=== PATIENT | female | born 1940 | race Caucasian/White ===

== ENCOUNTER 2017-05-24 07:17 | Day surgery (SDC) | payer MEDICARE, BC ==
[2017-05-24] MEDS ORDERED: Lactated Ringers 1,000 ML IV SCH (08:00)
[2017-05-24] MEDS ORDERED: Lidocaine 2% 100 MG/5 ML Syringe IVPUSH ONE (08:30)
[2017-05-24] MEDS ORDERED: Midazolam 1 MG/ML 2 ML SDV IV ONE (08:30)
[2017-05-24] MEDS ORDERED: Propofol 200 MG/20 ML SDV IV ONE (08:30)
--- NOTE | 2017-05-24 09:01 | PCM.OPNOTE ---
- General Post-Op/Procedure Note Date of Surgery/Procedure: 05/24/17 Operative Procedure(s): c scope Findings: internal hemorrhoids Pre Op Diagnosis: bleeding per rectum Post-Op Diagnosis: internal hemorrhoids Anesthesia Technique: NICCI Primary Surgeon: Felice Kevin Anesthesia Provider: Joseline Yanez Pathology: none Complications: None Condition: Good Free Text/Narrative:: see dictation
[2017-05-24 10:27] VITALS: BP 120/52
--- NOTE | 2017-05-24 15:10 | OR ---
DATE OF OPERATION: 05/24/2017 SURGEON: Felice Kevin MD PROCEDURE PERFORMED: Colonoscopy. PREOPERATIVE DIAGNOSIS: Bleeding per rectum. POSTOPERATIVE DIAGNOSIS: Internal hemorrhoids. INDICATIONS FOR PROCEDURE: This is a 76-year-old white female, who presents with the above-mentioned complaints. She was offered and accepted colonoscopy. DESCRIPTION OF PROCEDURE: After an excellent IV sedation was administered, digital rectal exam was performed. No marked abnormality was noted. Flexible colonoscope was inserted and advanced to the cecum without difficulty. The following findings were noted. Ascending colon, unremarkable. Transverse colon, unremarkable. Descending colon, unremarkable. Sigmoid, unremarkable. Rectum, unremarkable. On retroflexing the colonoscope, there was some evidence of internal hemorrhoids which appears to be the cause of her bleeding. The patient was taken to recovery room in good condition. /[id number] /MODL
== END 2017-05-24 10:17 | disposition home or self-care (01) ==
LOC: FB.SDS 07:17
PROVIDERS: ATTEND Surgery
DX: K64.8 Other hemorrhoids (principal); I11.0 Hypertensive heart disease with heart failure; I50.9 Heart failure, unspecified; E66.9 Obesity, unspecified; G25.81 Restless legs syndrome; I27.2 Other secondary pulmonary hypertension; Z90.49 Acquired absence of other specified parts of digestive tract; Z98.890 Other specified postprocedural states; Z90.710 Acquired absence of both cervix and uterus; Z87.891 Personal history of nicotine dependence; Z88.7 Allergy status to serum and vaccine; Z88.8 Allergy status to other drugs, medicaments and biological substances
CPT/HCPCS: 45378; J7120; 00810-QZ; J2250; J2704

== ENCOUNTER 2017-12-12 12:01 | Emergency (ER) | payer MEDICARE, BC ==
[2017-12-12] MEDS ORDERED: Metoprolol Tartrate 5 MG/5 ML SDV IVPUSH ONE ×2 (12:11→12:29)
[2017-12-12] MEDS ORDERED: Sodium Chloride 0.9% 1,000 ML IV SCH (12:15)
[2017-12-12] MEDS ORDERED: Heparin Sodium 5,000 Units/ML Vial IVPUSH ONE (12:51)
[2017-12-12] MEDS ORDERED: Magnesium Sulfate/Water 50 ML IV ONE ×2 (13:00)
[2017-12-12] MEDS ORDERED: Heparin Sodium/D5W 25,000 UNITS/500 ML BAG IV SCH (13:00)
[2017-12-12] MEDS ORDERED: Diltiazem 25 MG/5 ML SDV IV ONE (13:00)
[2017-12-12] MEDS ORDERED: Diltiazem 100 MG in Sodium Chloride 0.9% 100 ML IV SCH ×4 (13:00)
[2017-12-12] MEDS ORDERED: Heparin Sodium/0.45% NaCl 500 ML IV SCH (13:04)
[2017-12-12] MEDS ORDERED: Aspirin 81 MG Tab.Chew PO ONE (13:25)
[2017-12-12] MEDS: Acetaminophen 1,000 MG in Premix Bag 1 BAG IV ONE ×2 (13:34→14:20)
[2017-12-12] MEDS ORDERED: Furosemide 40 MG/4 ML VIAL ONE ×2 (13:38→13:49)
[2017-12-12] MEDS ORDERED: Nitroglycerin/D5W 25 MG/250 ML BOTTLE IV SCH (13:45)
[2017-12-12] MEDS ORDERED: Furosemide 40 MG/4 ML VIAL IVPUSH ONE ×2 (13:47→13:52)
[2017-12-12 13:48] VITALS: BP 127/77
[2017-12-12] MEDS ORDERED: Nitroglycerin 0.4 MG Tab.SL SL ONE (13:57)
[2017-12-12] MEDS ORDERED: cefTRIAXone 1,000 MG VIAL ONE (14:02)
[2017-12-12] MEDS ORDERED: cefTRIAXone 1,000 MG in Sodium Chloride 0.9% 50 ML IV ONE (14:21)
--- NOTE | 2017-12-12 16:22 | CR ---
INDICATION: Atrial fibrillation, chest pain. CHEST: An AP 45-degree upright view of the chest was obtained on a cart and revealed what appears to be a large fixed hiatal hernia, filled partly with air. The heart may be enlarged, but is not well delineated. Evidence of previous median sternotomy is noted. Overlying EKG leads are seen. Pulmonary vasculature is prominent, raising question of CHF. The possibility of patchy pneumonia cannot be excluded, especially in the lower lung field on the right. No gross consolidating pneumonia or effusion was seen, however. The aorta is tortuous and calcified in the arch area. IMPRESSION: 1. Probable ASHD with CHF. Possible interstitial lung edema versus areas of patchy pneumonia, especially at the right lung base. 2. Large fixed hiatal hernia. 3. Previous median sternotomy. MTDD
--- NOTE | 2017-12-13 09:40 | ER ---
DATE SEEN: 12/12/2017 CHIEF COMPLAINT: Shortness of breath, 1-week duration associated with 3-5 days of diarrhea and upset stomach and inability to eat food, drink food, vomiting for 3 days. The patient is status post bypass surgery, 2004, two vessels, coronary artery disease, obesity, hypertension, and 9 months ago had a GI bleed. The patient notes she is having chest pain 5/10 in intensity, nonradiating, has been present on and off for the last several days, but last 2 months it has been, the patient notes, more steady. This morning more short of breath than usual. The patient denies cancer or recent weight loss. She has mild headache with coughing. Denies pain or trauma of upper and lower extremities and denies change in urination, frequency, urgency, or dysuria. REVIEW OF SYSTEMS: As above. See HPI. ALLERGIES: Alendronate, tetanus toxoid, and tiotropium. MEDICATIONS: 1. Benadryl 50 mg at h.s. 2. Triamcinolone 1%. 3. Spironolactone 12.5. 4. Zoloft 150. 5. Simvastatin 20 mg. 6. Pramipexole 0.25 mg. 7. Lasix 40 mg daily. 8. Iron 325 mg b.i.d. 9. Diltiazem 120 mg daily. 10.Celecoxib 200 mg daily. 11.Atenolol 50 mg daily. 12.Acetaminophen. PHYSICAL EXAMINATION: VITAL SIGNS: On arrival, 141/118, respirations 26, heart rate 215, atrial fibrillation noted. Because of this, the patient was started x3 Lopressor 5 mg IV, this did not seem to affect her heart rate, but with calcium channel-blockers 25 mg push and a 5 mg/hour drip, decreased to 110s. GENERAL: She has chest pain on a 5/10 in intensity, sublingual nitroglycerine given, her pain came down 3/10 chest pain. Nitro drip was eventually started. Seemed like she felt more short of breath with nitro drip, consequently nitro drip was stopped. At one point, she was taken off the calcium blockers because heart rate decreased and she stated she felt better with the calcium channel blockers consequently she was put back on she felt somewhat better. She does have some coughing and coughed up loyola dark yellow sputum. Unfortunately, we did not get specimen collected. The patient is dyspneic, no accessary muscle of breathing. She is moderately obese woman, who is in moderate distress. Has mild diaphoresis. HEENT: PERRLA intact. Pharynx without abnormality. Increased thick tongue thickening. TMs negative. No jugular venous distention. LUNGS: Gwtc-[id number] rales at bases posterior and occasional sonorous rales. HEART: S1, S2. She has sinus tachycardia, but I do not hear a murmur. Heart rate still in the 200s. ABDOMEN: Soft, but she has moderate abdominal discomfort. No guarding or rebound. No CVA percussion tenderness. EXTREMITIES: With 1+ pedal edema. Radius and dorsalis pedis decreased pulses. No acrocyanosis. Deep tendon reflexes hypoactive but present in upper extremities, absent knee jerks and ankle jerks. Status post left total knee arthroplasty surgery. Surgery healed without infection or inflammation. ASSESSMENT: 1. Coronary artery disease, coronary artery syndrome with chest pain chronic with exacerbation of unstable angina. EKG, the patient's rate came down to 105, does not demonstrate ST-elevation. No ischemia pattern. 2. EKG demonstrated borderline low voltage. D-dimer is 4390. Chest pain etiology undetermined, [id number] myocardial infarction since she has markedly elevated troponin which may be partially elevated on the basis of the atrial fibrillation 200s. I think the combination of [id number] myocardial infarction plus atrial fibrillation caused elevation in the troponin. 3. Possible pulmonary embolisms. D-dimer is elevated to 4390. No aneurysm. 4. Morbid obesity. 5. Hypertension. 6. Possible hyperthyroidism, TSH pending. 7. Possible esophageal stricture-the patient is unable to swallow for the last 3 days any fluid. 8. It was presumed she had dehydration, but after 800 mL infused and only 250 mL out of urine, and worsening lung rales and rhonchi suggesting more fluid collection, the suggestion is not under hydrated and consequently the patient was given 40 mg of Lasix IV to promote diuresis. 9. Possible esophageal stricture. Unable to swallow and eat for last 3 days. Rule out esophageal carcinoma. 10.Rule out aortic aneurysm with elevated D-dimer. It is possible the aortic aneurysm could be pushing against the esophagus resulting in dysphagia. However, chest x-ray does not suggest aortic aneurysm. 11.Possible pulmonary embolism - the patient has been given prophylactic heparin 5000 flush and 1000 an hour, for [id number] myocardial infarction, which is high probability. Procedure Krishnan catheter placed, 2 IVs placed, a third IV was attempted but without success. IV fluid 800 plus mL and 250 mL urine output. Urinalysis pending. The patient's sats actually deteriorated slightly before transfer, deteriorated with IV nitroglycerin and improved with discontinue IV nitroglycerin and return of calcium channel radha - diltiazem drip 5 mg/hour. This was then increased to 10 mg/hour. 12.Possibility of right heart ND because of the elevated liver enzymes, elevated shortness of breath with nitroglycerin, and elevated cardiac enzymes. Right-sided EKG not done, unfortunately. Other diagnosis, neutrophilic leukocytosis, probable pneumonia. Chronic kidney disease stage 4 with acute kidney injury. Congestive heart failure secondary to atrial fibrillation. Elevated lactic acid secondary to right lung pneumonia. Aminasemia with AST 1226 and ALT 1094. The patient is not an alcoholic. Bilirubin is elevated at 1.6. Rule out right-sided heart failure causing liver congestion, however, could be some other cause. No evidence for influenza. Other medications given to the patient include Rocephin 1 gm IV. Lasix 40 IV. Normal saline 800 mL, heparin 5000 flush and 1000 an hour. Magnesium sulfate 2 g over an hour and a half. IV nitroglycerin, Ofirmev for headache 1000 mg , aspirin 324 mg, ceftriaxone 1 g, diltiazem 25 flush with 5-10 mg/hour drip. At one point, she had respiratory distress on Nitroglycerin, so Nitroglycerin was discontinued. At one point, there was concern perhaps we should fly the patient, but her status began to improve at the end of the resuscitation effort. Time spent with patient 2.5 hours. /[id number] MELISSA/MARGARITA
== END 2017-12-12 14:10 ==
LOC: FB.ED 12:01
DX: I21.4 Non-ST elevation (NSTEMI) myocardial infarction (principal); I25.110 Atherosclerotic heart disease of native coronary artery with unstable angina pectoris; I10 Essential (primary) hypertension; Z88.7 Allergy status to serum and vaccine; Z88.8 Allergy status to other drugs, medicaments and biological substances; Z79.899 Other long term (current) drug therapy; E66.01 Morbid (severe) obesity due to excess calories; Z95.1 Presence of aortocoronary bypass graft
CPT/HCPCS: 36415; 71045; 80053; 81001; 83605; 84443; 84484; 85025; 85379; 87040; 87804; 93005; 96365; 96368; 96375; 96376; 99285; A9270-GY; J0131; J0696; J1644; J1940; J3475; J3490; J7030; J7040; J7050